=== PATIENT | female | born 1975 | race Caucasian/White ===

== ENCOUNTER → 2020-08-23 10:23 | Outpatient (CLI) | payer BC, OTHER, SELFPAY ==
--- NOTE | 2020-08-23 10:29 | MM_ITS ---
PROCEDURE: MM DIG SCREENING MAMM BI W/CAD Digital Breast Tomosynthesis Included CLINICAL INDICATION: SCREENING There is a history of breast cancer in the patient's aunt. COMPARISON: MG DMSB DIG MAMM-SCREEN AKASH from 03/12/2016 TECHNIQUE: Standard CC and MLO images and 3D Tomosynthesis was obtained. R2 CAD reviewed. FINDINGS: Mild to moderate scattered fibroglandular densities are seen in both breasts. There are couple of benign-appearing microcalcifications each breast. No suspicious lesion in either breast and no suspicious microcalcifications. There is a fatty replaced node right axilla. IMPRESSION: Fibrofatty parenchyma with no suspicious lesions seen BI-RAD Category: 2 Benign Finding(s) FOLLOW-UP: 1YR 1 Year Follow-up (A letter has been sent to the patient regarding results of the study.) Dictated by: Dr. Román Ferrell MD 08/26/2020 08:49 Dr. Román Ferrell MD in [place] 08/26/2020 08:49
== END ==
PROVIDERS: PCP Family Medicine; Visit Provider Nurse Practitioner Family
DX: Z12.31 Encounter for screening mammogram for malignant neoplasm of breast (principal)
CPT/HCPCS: 77063; 77067

== ENCOUNTER 2021-10-05 11:28 | Outpatient (CLI) | payer BC, SELFPAY ==
[2021-10-05 12:03] VITALS: BMI 41.9
[2021-10-05 12:03] LABS: Chloride 95 mmol/L (98-107); Sodium 132 mmol/L (136-145)
[2021-10-05 12:06] LABS: Blood Urea Nitrogen 17 mg/dl (7-17); Calcium 8.5 mg/dl (8.4-10.2); Carbon Dioxide 29 mmol/L (22.0-30.0); Creatinine Clearance Estimated 63 mL/min (50-200); Estimated Glomerular Filt Rate 59 ml/min (>60); GFR (African American) 72 ML/MIN (>60)
[2021-10-05 12:11] LABS: Glucose 443 mg/dl (74-100)
--- NOTE | 2021-10-05 12:12 | PC.NURSE ---
Mandi Rodas called Virginia Collins RN to report glucose level 443. RN repeated and verified pt, name, , and lab value. Result called to Salina Cardoza, order noted to proceed w/orders already written.
[2021-10-05 12:41] LABS: Basophils # 0.2 K/mm3 (0-0.2); Basophils % 2.8 % (0.1-2.0); Eosinophils # 0.1 K/mm3 (0.0-0.4); Eosinophils % 1.5 % (0.1-12.0); Hematocrit 44.1 % (37.0-47.0); Hemoglobin 14.2 g/dL (12.2-16.2); Lymphocytes # 1.9 K/mm3 (0.7-4.5); Lymphocytes % 24.8 % (10-50); Mean Corpuscular HGB Conc 32.2 g/dL (31.8-35.4); Mean Corpuscular Hemoglobin 26.5 pg (27.0-31.2); Mean Corpuscular Volume 82.2 fl (81-99); Mean Platelet Volume 9.8 fl (7.4-10.4); Monocytes # 0.4 K/mm3 (0.1-1.0); Monocytes % 4.9 % (1.7-9.3); Platelet Count 165 K/mm3 (142-424); Red Blood Count 5.36 M/mm3 (4.20-5.40); Red Cell Distribution Width 15.8 % (11.5-17.5); White Blood Count 7.6 K/mm3 (4.8-10.8)
[2021-10-05 12:45] VITALS: BP 102/64; PULSE 78; RESP 18; O2SAT 98
[2021-10-05 13:15] VITALS: BP 104/53; PULSE 70; RESP 16; O2SAT 98
[2021-10-05 13:45] VITALS: BP 92/56; PULSE 74; RESP 16; O2SAT 99
[2021-10-05 14:15] VITALS: BP 99/51; PULSE 72; RESP 18; TEMP 36.6; O2SAT 100
[2021-10-05 14:40] VITALS: BP 103/59; PULSE 82; RESP 18; TEMP 36.6; O2SAT 97
[2021-10-05 14:43] VITALS: BP 116/62; PULSE 71; RESP 16; TEMP 36.6; O2SAT 99
== END 2021-10-05 14:45 | disposition home or self-care (01) ==
LOC: LAB 11:29 → INF 12:09
PROVIDERS: PCP Family Medicine; Visit Provider Family Medicine
DX: E86.0 Dehydration (principal); R73.9 Hyperglycemia, unspecified
CPT/HCPCS: 36415; 80048; 85025; 96360; 96361

== ENCOUNTER → 2021-10-11 15:34 | Outpatient (CLI) | payer BC, SELFPAY ==
--- NOTE | 2021-10-11 15:41 | MM_ITS ---
PROCEDURE INFORMATION: Exam: MG Bilateral Screening 3D Mammography Exam date and time: 10/11/2021 3:39 PM Age: 46 years old Clinical indication: Screening examination TECHNIQUE: Imaging protocol: Bilateral Screening tomosynthesis and 2D mammography including computer-aided detection (CAD) when performed. COMPARISON: 1. MG MM DIG SCREENING MAMM BI W/CAD 08/23/2020 10:41 AM 2. MG DMSB DIG MAMM-SCREEN AKASH 03/12/2016 9:33 AM FINDINGS: MAMMOGRAPHY: Breast composition: There are scattered areas of fibroglandular density. Mass: None. Architectural distortion: None. Calcifications: No suspicious calcifications. Asymmetric density: None. Skin thickening: None. Axillary adenopathy: None. IMPRESSION: No mammographic evidence of malignancy. Annual screening is recommended unless otherwise clinically indicated. ASSESSMENT: BI-RADS Category 1: Negative
== END ==
PROVIDERS: PCP Family Medicine; Visit Provider Nurse Practitioner Family
DX: Z12.31 Encounter for screening mammogram for malignant neoplasm of breast (principal)
CPT/HCPCS: 77063; 77067

== ENCOUNTER → 2022-12-11 12:29 | Outpatient (CLI) | payer BC, SELFPAY ==
--- NOTE | 2022-12-11 12:35 | MM_ITS ---
PROCEDURE INFORMATION: Exam: MG Bilateral Screening 3D Mammography Exam date and time: 12/11/2022 12:53 PM Age: 47 years old Clinical indication: Screening examination; Family history of breast cancer in aunt TECHNIQUE: Imaging protocol: Bilateral Screening tomosynthesis and 2D mammography including computer-aided detection (CAD) when performed. COMPARISON: 1. MG MM DIG SCREENING MAMM BI W/CAD 10/11/2021 3:39 PM 2. MG MM DIG SCREENING MAMM BI W/CAD 08/23/2020 10:41 AM FINDINGS: MAMMOGRAPHY: Breast composition: There are scattered areas of fibroglandular density. Mass: None. Architectural distortion: None. Calcifications: No suspicious calcifications. Asymmetric density: None. Skin thickening: None. Axillary adenopathy: None. IMPRESSION: No mammographic evidence of malignancy. Annual screening is recommended unless otherwise clinically indicated. ASSESSMENT: BI-RADS Category 1: Negative
== END ==
PROVIDERS: PCP Family Medicine; Visit Provider Physician Assistant
DX: Z12.31 Encounter for screening mammogram for malignant neoplasm of breast (principal)
CPT/HCPCS: 77063; 77067

== ENCOUNTER 2023-10-23 08:01 | Day surgery (SDC) | payer BC, SELFPAY ==
[2023-10-21 13:32] VITALS: BMI 40.7
[2023-10-23] VITALS (7 sets, daily range): BP systolic 109–137; BP diastolic 69–88; PULSE 85–97; RESP 16–18; TEMP 36.1–36.8; O2SAT 98–100
[2023-10-23] MEDS: LACTATED RINGERS 1000ML 1,000 ML 25 ML IV (09:09)
[2023-10-23 09:13] LABS: Urine Pregnancy, HCG Qual. Negative (Negative)
[2023-10-23 09:17] LABS: POC Glucose,Bedside 100 (70-110)
--- NOTE | 2023-10-23 09:56 | HMH.SCOPE ---
Procedure: Date: 10/23/23 Patient Date of :: 1975 Procedure Performed:: Colonoscopy Indications:: The patient is a 48-year-old who presents for screening colonoscopy for colorectal cancer. This is the patient's first colonoscopy Performing Provider:: Dylan Page MD Referring Provider:: Rivas Waterman MD Sedation:: See RN records Procedure:: After placing the patient in the left lateral decubitus position, the colonoscopy was gently inserted into the rectum and under direct visualization advanced to the cecum which was identified by transillumination in the right lower quadrant, identification of the ileocecal valve, appendiceal orifice, and cecal strap. Color, texture, mucosa, and anatomy of the colon were carefully examined with the scope. Findings:: The quality of the bowel preparation was good. There was a small sessile polyp (4 to 6 mm) in the ascending colon. The polyp was removed by cold snare polypectomy. The polyp was retrieved. The remaining colon appeared normal. Internal hemorrhoids were seen on retroflexion view of the rectum. There is a family history of colon cancer in a paternal grandparent. The patient does not know her father's medical history in detail. Impression: Polyp of the ascending colon Recommendations:: Await pathology results Repeat colonoscopy in 5 years Complications:: None Estimated blood obtained (mL): 0 Colonoscopy Component Colonoscopy Component Was a colonoscopy performed during today's procedure?: Yes Recommended follow up colonoscopy of at least 10 years?: Yes
--- NOTE | 2023-10-23 09:57 | EXP.ANES.CKL ---
[facility] Disclaimer: The information contained in this section may have been updated after the patient was seen, as this information can be updated by other users. Medical History Hx of heart disorder History of Wwups-Qjeyifitd-Mkszi (WPW) syndrome History of gastroesophageal reflux (GERD) Hyperlipidemia Hypertension Diabetes mellitus, type 2 Surgical History Hx of tooth extraction History of section Family History Grandfather Colon cancer Other Family history of diabetes mellitus type II Family history of hypertension Family history of myocardial infarction Social History Smoking Status: Never smoker alcohol intake: never substance use type: denies use current occupational status: employed Travel in the last 8 weeks: None adopted: No caregiver/support person: No foster care: No household members: spouse housing: house lives independently: Yes marital status: education level: high school service: No assisted: No caffeine: No special mariana needs: No agree to transfusion: No do you feel safe at home: Yes victim of physical abuse: No victim of emotional abuse: No victim of sexual abuse: No would you like helpful sources: No [facility] Anesthesia Checklist Patient Identification Patient Identification: Verbal (Name & ) Structural Data Admitted From: Home Planned Operative Procedure/s: colonoscopy Consent for Planned Operative Procedure(s) Verified: Yes Airway Assessment Mallampati Score:: Class II C-Spine Mobility Assessed: Yes TMJ Mobility Assessed: Yes Dentition: Good Dentition Neurological Assessment Level of Consciousness: Awake, Alert and Appropriate Anesthesia Plan Anesthesia Risk discussed: Yes Anesthesia Plan: Verified ASA Class: II Anesthesia Type: MAC
== END 2023-10-23 10:50 | disposition home or self-care (01) ==
PROVIDERS: PCP Family Medicine; Visit Provider Internal Medicine
PROC: (CPT 45385; principal; 2023-10-23 09:00)
DX: Z12.11 Encounter for screening for malignant neoplasm of colon (principal); K64.8 Other hemorrhoids; Z80.0 Family history of malignant neoplasm of digestive organs; D12.2 Benign neoplasm of ascending colon; E11.9 Type 2 diabetes mellitus without complications
CPT/HCPCS: 45385; 81025; 82962

== ENCOUNTER 2023-12-03 16:17 | Outpatient (CLI) | payer BC, SELFPAY ==
--- NOTE | 2023-12-03 16:21 | MM_ITS ---
PROCEDURE INFORMATION: Exam: MG Bilateral Screening 3D Mammography Exam date and time: 12/03/2023 4:08 PM Age: 48 years old Clinical indication: Screening mammogram TECHNIQUE: Imaging protocol: Bilateral Screening tomosynthesis and 2D mammography including computer-aided detection (CAD) when performed. COMPARISON: 1. MG MM DIG SCREENING MAMM BI W/CAD 12/11/2022 12:53 PM 2. MG MM DIG SCREENING MAMM BI W/CAD 10/11/2021 3:39 PM 3. MG MM DIG SCREENING MAMM BI W/CAD 08/23/2020 10:41 AM 4. MG DMSB DIG MAMM-SCREEN AKASH 03/12/2016 9:33 AM FINDINGS: MAMMOGRAPHY: Breast composition: There are scattered areas of fibroglandular density. Mass: None. Architectural distortion: No new or suspicious architectural distortion. Calcifications: No new or suspicious calcifications are present Asymmetric density: No new or suspicious asymmetric density is present Skin thickening: None. Axillary adenopathy: None. IMPRESSION: No mammographic evidence of malignancy. Recommend annual screening mammography unless otherwise clinically indicated. ASSESSMENT: BI-RADS category 1: Negative.
== END 2023-12-03 23:59 | disposition home or self-care (01) ==
LOC: RAD 16:18
PROVIDERS: PCP Nurse Practitioner Family; Visit Provider Nurse Practitioner Family
DX: Z12.31 Encounter for screening mammogram for malignant neoplasm of breast (principal)
CPT/HCPCS: 77063; 77067

== ENCOUNTER 2024-12-07 07:53 | Outpatient (CLI) | payer BC, SELFPAY ==
--- OUTSIDE RECORDS SUMMARY | 2024-05-18 05:30 | XMS_ITS ---
Author Organization [facility] Address [address] [place] [id number] Care Team Providers Care Certified Optician Name Role Phone Saul Rose Primary Care Provider Zulma Hand Unavailable [phone] Allergies No Known Allergies Results Component Value Reference Range Notes Glycohemoglobin A1c (in hous e) Reviewed date:05/18/2024 01:24:35 PM Interpretation:7.3% Performing Lab: Notes/Report: 7.3% glycohemoglobin 7.3% 5 - 6.5 % P-Comprehensive Metabolic Pa jorge (CMP) Reviewed date:05/22/2024 09:29:09 AM Interpretation:BS 168 Performing Lab: Notes/Report: Test performed by [facility], [place] [address] [place] [address] , [address], [place] [address] Piyush Handy MD, Pet Training Instructor CLIA: [id number] Sodium 141 135-145 mmol/L Potassium 5.0 3.5-5.3 mmol/L Chloride 101 97-108 mmol/L CO2 30 22-32 mmol/L Glucose 168 65-99 mg/dL BUN 6 6-20 mg/dL Creatinine 0.80 0.50-1.00 mg/dL Calcium 9.0 8.6-10.4 mg/dL eGFR by Creatinine 90 >59 mL/min/1.73m2 Protein 6.5 6.0-8.3 g/dL Albumin 3.8 3.5-5.3 g/dL Alkaline Phosphatase 108 35-121 IU/L ALT (SGPT) 20 <5-47 IU/L AST (SGOT) 20 <5-40 IU/L Bilirubin, Total 0.5 <0.2-1.2 mg/dL A/G Ratio 1.4 1.1-2.5 P-Lipid Panel Reviewed date:05/22/2024 09:28:33 AM Interpretation:[id number] Performing Lab: Notes/Report: Test performed by [facility], [address] , [address], [place] [address] Piyush Handy MD, Pet Training Instructor CLIA: [id number] Cholesterol 143 <200 mg/dL Triglycerides 105 <150 mg/dL HDL Cholesterol 44 >39 mg/dL Cholesterol / HDL Ratio 3.25 0.00-4.44 Ratio Non-HDL Cholesterol 99 <130 mg/dL LDL Cholesterol (Calculation) 78 <130 mg/dL LDL Cholesterol Levels* Less than 100 mg/dL Optimal 100 to 129 mg/dL Near Optimal/ Above Optimal 130 to 159 mg/dL Borderline High 160 to 189 mg/dL High 190 mg/dL and above Very High * Categories as recommended by the 2004 ATPIII guidelines LDL/HDL Ratio 1.8 <3.3 Ratio LDL Cholesterol Patient History Test Date: 05/18/2024 LDL Results: 78 Units: mg/dL % Change: - P-Microalbumin/Creatinine, R andom Urine Sample Reviewed date:05/22/2024 09:29:46 AM Interpretation: Performing Lab: Notes/Report: Test performed by [facility], [address] , [address], [place] [address] Piyush Handy MD, Pet Training Instructor CLIA: [id number] Albumin/Creatinine Ratio, Urine 4 0-30 ug/m g Microalbumin, Urine, Random 0.6 Creatinine, Urine 143.7 REASON FOR VISIT 6 month check, Needs labs & flu vaccine Medications Medication SIG (Take, Route, Frequency, Duration) Notes Start Date End Date Status Lisinopril-hydroCHLOROthiazi de 10-12.5 MG 1 tab(s) orally once a day; Duration: 90 days Active Lipitor 10 MG 1 tab(s) orally once a day (at bedtime); Duration: 90 days Active Lisinopril 2.5 MG 1 tablet Orally Once a day; Duration: 90 day(s) 11/25/2023 Active ZANTAC 150 150 MG 1 tab(s) ORALLY QD; Duration: 90 days Active BD DANELLE 2ND GEN PEN NEEDLE 4 MM X 32G - DIRECTED Active Xigduo XR 5-1000 MG 2 tab Orally Once a day; Duration: 90 day(s) 07/18/2023 Active Rybelsus 14 MG 1 tablet at least 30 minutes before first food, beverage or other oral medicine of the day Orally Once a day; Duration: 90 day(s) Active GLUCOMETER DIRECTED TWO TIME S A DAY 10/05/2021 Active Lancets 1 TWO TIMES A DAY 10/05/2021 A ctive GLUCOMETER TEST STRIPS DIRECTED TWO T IMES A DAY 10/05/2021 Active CONTOUR METER SYSTEM DIRECTED 01/18/2012 Active Contour Test DIRECTED TEST 1 X PER DAY 01/18/2012 Active B-12 1000 MCG 1 tab(s) orally once a day 02/23/2016 Active CHROMIUM PUCOLINATE 500 MCG 1 TAB ORAL ONCE DAILY Active Jobst 30-40mmHg Compression Sm DIRECTED 019 Active Potassium Chloride ER 10 MEQ 1 cap(s) or ally 2 times a day; Duration: 90 days Active hydroCHLOROthiazide 12.5 MG 1 capsule in the morning Orally Once a day; Duration: 90 day(s) 11/25/2023 Active Immunizations Vaccine Route Administration Date Status Comme nts Crystal Aguilera (6months&older) IM Intramuscular 05/18/2024 Administered Vital Signs Blood pressure systolic 120 mm Hg 05/18/20 24 Blood pressure diastolic 80 mm Hg 024 Heart Rate 61 /min 05/18/2024 Height 64.50 in 05/18/2024 Weight 222.2 lbs 05/18/2024 BMI 37.55 kg/m2 05/18/2024 Encounters Encounter Location Date Provider Diagnosis [facility] [address] [place], [place] [id number] 05/18/2024 Zulma Hand Type 2 diabetes chrissy itus without complication E11.9 ; Mixed hyperlipidemia E78.2 ; Essential hypertension, hypertension with unspecified goal I10 ; Gastroesophageal reflux disease without esophagitis K21.9 and Encounter for immunization Z23 Assessments Encounter Date Diagnosis (ICD Code) Assessment Notes Treatment Notes Treatment Clinical Notes Section Notes 05/18/2024 Type 2 diabetes mellitus without complication (ICD-10 - E11.9) 05/18/2024 Mixed hyperlipidemia (ICD-10 - E78.2) 05/18/2024 Essential hypertension, hypertension with unspecified goal (ICD-10 - I10) some low BP; denia decrease lisinopril and continue with HCTZ due to varicosities of the right leg 05/18/2024 Gastroesophageal reflux disease without esophagitis (ICD-10 - K21.9) 05/18/2024 Encounter for immunization (ICD-10 - Z23) 05/18/2024 Other discussed need for Eye exam annually Plan Of Treatment Medication Medication Name Sig Start Date Stop Date Notes Lipitor 10 MG 1 tab(s) orally once a day (at bedtime); Duration: 90 days Lisinopril 2.5 MG 1 tablet Orally Once a day; Duration: 90 day(s) 11/25/2023 ZANTAC 150 150 MG 1 tab(s) ORALLY QD; Duration: 90 days Xigduo XR 5-1000 MG 2 tab Orally Once a day; Duration: 90 day(s) 07/18/2023 Rybelsus 14 MG 1 tablet at least 30 minutes before first food, beverage or other oral medicine of the day Orally Once a day; Duration: 90 day(s) Treatment Notes Assessment Notes Essential hypertension, hype rtension with unspecified goal some low BP; denia decrease lisinopril an d continue with HCTZ due to varicosities of the right leg Other discussed need for E ye exam annually Next Appt Details Follow Up: 6 Months,and prn, Reason: Provider Name:Saul Trejo ry, 05/11/2025 09:45:00 AM, [address], [address], [place], [place], [phone], Progress Notes * Omid DOUGLASaDOB:1975 (49 yo F)Acc No.[id number]:05/18/2024 Progress Notes Patient: Sienna LEDBETTER Provider: PAULO Ledesma :1975 A ge:49 Y S ex:Female Date:05/18/2024 Address:[address] [place] [address] [facility] [id number] Pcp:Saul Rose Subjective: * Chief Complaints: * 1 . 6 month check. 2. Needs labs & flu vaccine. * HPI: H PI: 49 year old female presents with c/o Patient is here today for?Pt is here today for a 6 month check up and sts she is fatsing. Pt sts she is doing well and has no concerns or complaints at this time. she did run out of some of meds mid Apr and was short on money for RF; she brings in a log of BS and BP; see copies. * ROS: C ARDIOLOGY: Dizziness y es, a t times at work. n o C hest pain. n o P alpitations. n o L eg edema. D ERMATOLOGY: no R sage. n o H will. G ASTROENTEROLOGY: Positive for e ating less with weight loss. n o N ausea. n o V omiting. n o D iarrhea. n o C onstipation. U ROLOGY: no D ifficulty urinating. n o B lood in urine. * Medical History: D iabetes mellitus, Hyperlipidemia, Hypertension, GERD, WPW Syndrome. * Surgical History: C SECTION , Tooth Extraction Feb 2019, Colonoscopy October 2023. * Hospitalization/Major Diagno stic Procedure: H MH-uncontrolled diabetes mellitus 01/04/12 to 01/07/12. * Family History: F ather: alive, diabetes. M other: alive, diabetes, hypertension. P aternal Grand Father: hypertension, diabetes. P aternal Grand Mother: diabetes. M aternal Grand Father: diabetes. M aternal Grand Mother: hypertension, diabetes. * Social History: C URRENT TOBACCO USE S moking Status: Patient does NOT smoke. C affeine: soft drinks. Alcohol: No. * Medications: T aking Potassium Chloride ER 10 MEQ Capsule Extended Release 1 cap(s) orally 2 times a day , Taking Lipitor 10 MG Tablet 1 tab(s) orally once a day (at bedtime) , Taking hydroCHLOROthiazide 12.5 MG Capsule 1 capsule in the morning Orally Once a day , Taking Lisinopril 5 MG Tablet 1 tablet Orally Once a day , Taking Xigduo XR 5- 1000 MG Tablet Extended Release 24 Hour 2 tab Orally Once a day , Taking Rybelsus 14 MG Tablet 1 tablet at least 30 minutes before first food, beverage or other oral medicine of the day Orally Once a day , Taking CONTOUR METER SYSTEM DIRECTED , Taking Contour Test DIRECTED TEST 1 X PER DAY , Taking CHROMIUM PUCOLINATE 500 MCG 1 TAB ORAL ONCE DAILY , Taking Jobst 30-40mmHg Compression Sm KNEE HIGH DIRECTED , Taking B-12 1000 MCG Tablet 1 tab(s) orally once a day , Taking GLUCOMETER DIRECTED TWO TIMES A DAY , Taking Lancets 1 TWO TIMES A DAY , Taking GLUCOMETER TEST STRIPS DIRECTED TWO TIMES A DAY , Taking BD DANELLE 2ND GEN PEN NEEDLE 4MM X 32G - DIRECTED , Taking ZANTAC 150 150 MG TABLET 1 tab(s) ORALLY QD , Taking Lisinopril-hydroCHLOROthiazide 10-12.5 MG Tablet 1 tab(s) orally once a day , Medication List reviewed and reconciled with the patient * Allergies: N .K.D.A. Objective: * Vitals: W t:222.2, Temp:98.5, BP:120/80, HR:61, Nurse:ZOE, Ht: 64.50, BMI:37.55. * Examination: G eneral Examination: General Appearance: NAD, appears healthy, alert, pleasant. H EENT: sclera and conjunctiva clear, PERRLA, TM's normal, translucent. O ral cavity: mucosa moist and WNL, no erythema. N angelic: supple, no lymphadenopathy, no carotid bruits, thyroid normal. H eart: RRR. L ungs: CTAB A&P. N eurologic Exam:? alert and oriented. E xtremities: no leg edema, large varicose veins in the right leg. Assessment: * Assessment: 1. T ype 2 diabetes mellitus without complication - E11.9 (Primary) 2 . M ixed hyperlipidemia - E78.2 3 . E ssential hypertension, hypertension with unspecified goal - I10 4 . G astroesophageal reflux disease without esophagitis - K21.9 5 . E ncounter for immunization - Z23 Plan: * Treatment: 2. M ixed hyperlipidemia Refill Lipitor Tablet, 10 MG, 1 tab(s), orally, once a day (at bedtime), 90 days, 90, Refills 1.? L AB: P-Lipid Panel (Collection Date & Time - 05/18/2024 09:03 AM) L DL78 Value Reference Range C holesterol / HDL Ratio 3.25 0.00-4.44 - Ratio * C holesterol 143 <200 - mg/dL * H DL Cholesterol 44 >39 - mg/dL * L DL Cholesterol (Calculation) 78 <130 - mg/d L * L DL/HDL Ratio 1.8 <3.3 - Ratio * N on-HDL Cholesterol 99 <130 - mg/dL * T riglycerides 105 <150 - mg/dL * Zulma Hand 05/22/2024 9:28:04 AM > I spoke with pt and reported results 3.?Essential hypertension, hypertension with unspecified goal? Decrease Lisinopril Tablet, 2.5 MG, 1 tablet, Orally, Once a day, 90 day(s), 90 Tablet, Refills 1. ? Notes: some low BP; denia decrease lisinopril and continue with HCTZ due to varicosities of the right leg??4.?Gastroesophageal reflux disease without esophagitis? Refill ZANTAC 150 TABLET, 150 MG, 1 tab(s), ORALLY, QD, 90 days, 90 Tablet, Refills 1.??5.?Others? Notes: discussed need for Eye exam annually?? * Immunizations: Fluzone Quad (6months&older) : 0.5 mL (Route: Intramuscular) given by ZOE Landis on Right Deltoid (Encounter for immunization) * Labs: * L ab: P-Microalbumin/Creatinine, Random Urine Sample (Collection Date & Time - 05/18/2024 09:03 AM) Value Reference Range A lbumin/Creatinine Ratio, Urine 4 0-30 - ug /mg * C reatinine, Urine 143.7 - mg/dL * M icroalbumin, Urine, Random 0.6 - mg/dL * Zulma Hand 05/22/2024 9:29:47 AM > ?Lab: P-Comprehensive Metabolic Panel (CMP) (Collection Date & Time - 05/18/2024 09:03 AM)?BS 168* Value Reference Range A /G Ratio 1.4 1.1-2.5 - * A lbumin 3.8 3.5-5.3 - g/dL * A lkaline Phosphatase 108 35-121 - IU/L * A LT (SGPT) 20 <5-47 - IU/L * A ST (SGOT) 20 <5-40 - IU/L * B ilirubin, Total 0.5 <0.2-1.2 - mg/dL * B UN 6 6-20 - mg/dL * C alcium 9.0 8.6-10.4 - mg/dL * C hloride 101 97-108 - mmol/L * C O2 30 22-32 - mmol/L * C reatinine 0.80 0.50-1.00 - mg/dL * G lucose 168 H 65-99 - mg/dL * P otassium 5.0 3.5-5.3 - mmol/L * S odium 141 135-145 - mmol/L * P rotein 6.5 6.0-8.3 - g/dL * e GFR by Creatinine 90 >59 - mL/min/1.73m2 * Zulma Hand 05/22/2024 9:25:17 AM > I spoke with pt and reported results ?Lab: Glycohemoglobin A1c (in house) (Collection Date & Time - 05/18/2024) ?7.3%* Value Reference Range g lycohemoglobin 7.3% 5 - 6.5 % * Soledad Barraza 05/18/2024 10:2 4:42 AM >Lacey Handharine 05/18/2024 1:24:21 PM > * Procedure Codes: 8 3036 GLYCATED HEMOGLOBIN TEST, Modifiers: QW * Follow Up: 6 Months,and prn * Images: Billing Information: * Visit Code: 68433 Office Visit, Est Pt., Level 4. * Procedure Codes: 64718 GLYCATED HEMOGLOBIN TEST. Modifiers: QW * Electronic signature of Carol aliyahchanda Hand APRN on 12/07/2024 at 07:55 AM EDT Sign off status: Pending * Provider: PAULO Ledesma Date: 1 07/19/2023 Generated for Simeon glaser/Zoey/Cecily on: 0 12/07/2024 07:55 AM EDT History and Physical Notes * HPI (History of Present Illness) Category Sub-Category Detail Notes Category Not es HPI Patient is here toda y for Pt is here today for a 6 month check up and sts she is fatsing. Pt sts she is doing well and has no concerns or complaints at this time she did run out of some of meds mid Apr and was short on money for RF; she brings in a log of BS and BP; see copies Examination Category Sub-Category Detail Notes Category Not es General Examination HEENT: sclera and c onjunctiva clear, PERRLA, TM's normal, translucent Heart: RRR Lungs: CTAB A&P Extremities: no leg edema, large varicose veins in the right leg General Appearance: NAD, appears healthy , alert, pleasant Neurologic Exam: alert and oriented Neck: supple, no lymphaden opathy, no carotid bruits, thyroid normal Oral cavity: mucosa moist and WNL , no erythema
--- OUTSIDE RECORDS SUMMARY | 2024-11-09 06:15 | XMS_ITS ---
Author Organization [facility] Address [address] [place] [id number] Care Team Providers Care Vp Securities Name Role Phone Saul Rose Primary Care Provider Zulma Hand Unavailable [phone] Allergies No Known Allergies Results Component Value Reference Range Notes CBC Venipuncture (in house) Reviewed date:11/13/2024 09:07:30 AM Interpretation: Performing Lab: Notes/Report: wbc 10.2 3.5 - 10 lymph 34.5 15 - 50 mid 6.7 2 - 15 gran 58.8 35 - 80 rbc 5.35. 3.5 - 5.5 hgb 14.0 11.5 - 16.5 hct 43.9 35 - 55 mcv 81.9 75 - 100 mch 26.1 25 - 35 mchc 31.9 31 - 38 platlet 271 100 - 400 Glycohemoglobin A1c (in hous e) Reviewed date:11/13/2024 09:04:32 AM Interpretation:6.3% Performing Lab: Notes/Report: 6.3% glycohemoglobin 6.3% 5 - 6.5 % P-Comprehensive Metabolic Pa jorge (CMP) Reviewed date:11/13/2024 09:07:02 AM Interpretation:BS 101 Performing Lab: Notes/Report: Test performed by [facility] , [address], [place] [address] Piyush Handy MD, Cashier General CLIA: [id number] Sodium 139 135-145 mmol/L Potassium 4.9 3.5-5.3 mmol/L Chloride 101 97-108 mmol/L CO2 30 22-32 mmol/L Glucose 101 65-99 mg/dL BUN 11 6-20 mg/dL Creatinine 0.78 0.50-1.00 mg/dL Calcium 8.9 8.6-10.4 mg/dL eGFR by Creatinine 92 >59 mL/min/1.73m2 Protein 6.6 6.0-8.3 g/dL Albumin 4.1 3.5-5.3 g/dL Alkaline Phosphatase 87 35-121 IU/L ALT (SGPT) 13 <5-47 IU/L AST (SGOT) 15 <5-40 IU/L Bilirubin, Total 0.5 <0.2-1.2 mg/dL A/G Ratio 1.6 1.1-2.5 P-Lipid Panel Reviewed date:11/13/2024 09:08:17 AM Interpretation:HDL 43;LDL 69; TG 103 Performing Lab: Notes/Report: Test performed by [facility] [place] [employer] [facility] , [address], [place] [address] Piyush Handy MD, Cashier General CLIA: [id number] Cholesterol 133 <200 mg/dL Triglycerides 103 <150 mg/dL HDL Cholesterol 43 >39 mg/dL Cholesterol / HDL Ratio 3.09 0.00-4.44 Ratio Non-HDL Cholesterol 90 <130 mg/dL LDL Cholesterol (Calculation) 69 <130 mg/dL LDL Cholesterol Levels* Less than 100 mg/dL Optimal 100 to 129 mg/dL Near Optimal/ Above Optimal 130 to 159 mg/dL Borderline High 160 to 189 mg/dL High 190 mg/dL and above Very High * Categories as recommended by the 2004 ATPIII guidelines LDL/HDL Ratio 1.6 <3.3 Ratio LDL Cholesterol Patient History Test Date: 11/09/2024 LDL Results: 69 Units: mg/dL % Change: - REASON FOR VISIT 6 month checkup, Needs labs, diabetic eye exam, shingles vaccine, & mammogram due in December Medications Medication SIG (Take, Route, Frequency, Duration) Notes Start Date End Date Status hydroCHLOROthiazide 12.5 MG 1 capsule in the morning Orally Once a day; Duration: 90 days 11/25/2023 Active Potassium Chloride ER 10 MEQ 1 cap(s) or ally 2 times a day; Duration: 90 days Active Lisinopril 2.5 MG 1 tablet Orally Once a day; Duration: 90 day(s) 11/25/2023 Active Lisinopril-hydroCHLOROthiazi de 10-12.5 MG 1 tab(s) orally once a day; Duration: 90 days Active BD DANELLE 2ND GEN PEN NEEDLE 4 MM X 32G - DIRECTED Active GLUCOMETER DIRECTED TWO TIME S A DAY 10/05/2021 Active Lipitor 10 MG 1 tab(s) orally once a day (at bedtime); Duration: 90 days Active ZANTAC 150 150 MG 1 tab(s) ORALLY daily; Duration: 90 days Active GLUCOMETER TEST STRIPS DIRECTED TWO T IMES A DAY 10/05/2021 Active Lancets 1 TWO TIMES A DAY 10/05/2021 A ctive B-12 1000 MCG 1 tab(s) orally once a day 02/23/2016 Active Xigduo XR 5-1000 MG 2 tab Orally Once a day; Duration: 90 day(s) 07/18/2023 Active Jobst 30-40mmHg Compression Sm DIRECTED 019 Active CHROMIUM PUCOLINATE 500 MCG 1 TAB ORAL ONCE DAILY Active Rybelsus 14 MG 1 tablet at least 30 minutes before first food, beverage or other oral medicine of the day Orally Once a day; Duration: 90 days Active Contour Test DIRECTED TEST 1 X PER DAY 01/18/2012 Active CONTOUR METER SYSTEM DIRECTED 01/18/2012 Active Vital Signs Blood pressure systolic 120 mm Hg 11/10/19 25 Blood pressure diastolic 70 mm Hg 025 Heart Rate 73 /min 11/09/2024 Height 64.50 in 11/09/2024 Weight 223.8 lbs 11/09/2024 BMI 37.82 kg/m2 11/09/2024 Encounters Encounter Location Date Provider Diagnosis [facility] [address] [facility] [address] [place] [id number] 11/09/2024 Zulma Hand Type 2 diabetes chrissy itus without complication E11.9 ; Essential hypertension, hypertension with unspecified goal I10 ; Mixed hyperlipidemia E78.2 ; Gastroesophageal reflux disease without esophagitis K21.9 and Hypokalemia E87.6 Assessments Encounter Date Diagnosis (ICD Code) Assessment Notes Treatment Notes Treatment Clinical Notes Section Notes 11/09/2024 Type 2 diabetes mellitus without complication (ICD-10 - E11.9) Since been off meds for a few months, A1C may be higher. Continue meds. If run out due to money issues may call up here to see if we have any samples. Follow up in 6 mo or as needed 11/09/2024 Essential hypertension, hypertension with unspecified goal (ICD-10 - I10) Monitor blood pressure at home, continue meds, exercise, and diet 11/09/2024 Mixed hyperlipidemia (ICD-10 - E78.2) Continue lipitor, recheck lipid panel, if run out of meds again and unable to afford call the office to see if we have any samples. 11/09/2024 Gastroesophageal reflux disease without esophagitis (ICD-10 - K21.9) Continue this med OTC as it has been helping you. 11/09/2024 Hypokalemia (ICD-10 - E87.6) continue with potassium pills, will recheck labs today Plan Of Treatment Medication Medication Name Sig Start Date Stop Date Notes hydroCHLOROthiazide 12.5 MG 1 capsule in the morning Orally Once a day; Duration: 90 days 11/25/2023 Potassium Chloride ER 10 MEQ 1 cap(s) or ally 2 times a day; Duration: 90 days Lisinopril 2.5 MG 1 tablet Orally Once a day; Duration: 90 day(s) 11/25/2023 Lipitor 10 MG 1 tab(s) orally once a day (at bedtime); Duration: 90 days ZANTAC 150 150 MG 1 tab(s) ORALLY reena y; Duration: 90 days Xigduo XR 5-1000 MG 2 tab Orally Once a day; Duration: 90 day(s) 07/18/2023 Rybelsus 14 MG 1 tablet at least 30 minutes before first food, beverage or other oral medicine of the day Orally Once a day; Duration: 90 days Treatment Notes Assessment Notes Type 2 diabetes mellitus without complic ation Since been off meds for a few months, A1C may be higher. Continue meds. If run out due to money issues may call up here to see if we have any samples. Follow up in 6 mo or as needed Essential hypertension, hype rtension with unspecified goal Monitor blood pressure at home, continue meds, exercise, and diet Mixed hyperlipidemia Continue lipitor, r echeck lipid panel, if run out of meds again and unable to afford call the office to see if we have any samples. Gastroesophageal reflux dise ase without esophagitis Continue this med OTC as it has been helping you. Hypokalemia continue with potass ium pills, will recheck labs today Next Appt Details Provider Name:Saul Trejo ry, 05/11/2025 09:45:00 AM, [address], [address] [place], [id number], Progress Notes * AARON OmidaDOB:1975 (49 yo F)Acc No.[id number]:11/09/2024 Progress Notes Patient: Sienna LEDBETTER Provider: PAULO Ledesma :1975 A ge:49 Y S ex:Female Date:11/09/2024 Address:[address] [place], [place] [address] [id number] Pcp:Saul Rose Subjective: * Chief Complaints: * 1 . 6 month checkup. 2. Needs labs, diabetic eye exam, shingles vaccine, & mammogram due in December. * HPI: H PI: Wears compression socks to work and helps with varicose veins; ran out of meds for severa weeks due to lack of funds. 49 year old female presents with c/o Patient is here today for?Pt is here today for a 6 month check up. Pt sts she is fasting and is doing well and has no concerns at this time. * ROS: C ARDIOLOGY: no C hest pain. n o L eg edema. n o S hortness of breath. V aricose veins yes. D ERMATOLOGY: no R sage. n o H will. G ASTROENTEROLOGY: Positive for e ating less with weight loss. n o N ausea. n o V omiting. n o D iarrhea. n o C onstipation. U ROLOGY: no D ifficulty urinating. n o B lood in urine. W ill get her mammogram in December, due for diabetic eye exam. Let her know it is under a different code at eye dr and will be counted towards medical. * Medical History: D iabetes mellitus, Hyperlipidemia, [...] drinks. Alcohol: No. * Medications: T aking CONTOUR METER SYSTEM DIRECTED , Taking Contour [...] 4MM X 32G - DIRECTED , Taking Lisinopril-hydroCHLOROthiazide 10-12.5 MG Tablet 1 tab(s) orally once a day , Taking Xigduo XR 5-1000 MG Tablet Extended Release 24 Hour 2 tab Orally Once a day , Taking Rybelsus 14 MG Tablet 1 tablet at least 30 minutes before first food, beverage or other oral medicine of the day Orally Once a day , Taking ZANTAC 150 150 MG TABLET 1 tab(s) ORALLY QD , Taking Lipitor 10 MG Tablet 1 tab(s) orally once a day (at bedtime) , Taking Lisinopril 2.5 MG Tablet 1 tablet Orally Once a day , Taking Potassium Chloride ER 10 MEQ Capsule Extended Release 1 cap(s) orally 2 times a day , Taking hydroCHLOROthiazide 12.5 MG Capsule 1 capsule in the morning Orally Once a day , Medication List reviewed and reconciled with the patient * Allergies: N .K.D.A. Objective: * Vitals: W t: 223.8, Temp: 98.5, BP: 120/70, HR: 73, Nurse: mm, Ht: 64.50, BMI:37.82. * Examination: G eneral Examination: General Appearance: N AD, alert, appears healthy. H EENT: n ormal. O ral cavity: n o erythema, no lesions, poor dentition. N angelic: n o lymphadenopathy. H eart: R RR. L ungs: n ormal, clear to auscultation. A bdomen: bowel sounds present, normal. S kin: n ormal, no rash. P eripheral pulses: n ormal (2+) bilaterally. Assessment: * Assessment: 1. T ype 2 diabetes mellitus without complication - E11.9 (Primary) 2 . E ssential hypertension, hypertension with unspecified goal - I10 3 . M ixed hyperlipidemia - E78.2 4 . G astroesophageal reflux disease without esophagitis - K21.9 5 . H ypokalemia - E87.6 Plan: * Treatment: Value Reference Range A /G Ratio 1.6 1.1-2.5 - * A lbumin 4.1 3.5-5.3 - g/dL * A lkaline Phosphatase 87 35-121 - IU/L * A LT (SGPT) 13 <5-47 - IU/L * A ST (SGOT) 15 <5-40 - IU/L * B ilirubin, Total 0.5 <0.2-1.2 - mg/dL * B UN 11 6-20 - mg/dL * C alcium 8.9 8.6-10.4 - mg/dL * C hloride 101 97-108 - mmol/L * C O2 30 22-32 - mmol/L * C reatinine 0.78 0.50-1.00 - mg/dL * G lucose 101 H 65-99 - mg/dL * P otassium 4.9 3.5-5.3 - mmol/L * S odium 139 135-145 - mmol/L * P rotein 6.6 6.0-8.3 - g/dL * e GFR by Creatinine 92 >59 - mL/min/1.73m2 * Zulma Hand 11/13/2024 09:00:45 AM EDT >I spoke with pt and reported results; will decrease KCL to once daily ?LAB: Glycohemoglobin A1c (in house) (Collection Date & Time - 11/09/2024)? 6.3%* Value Reference Range g lycohemoglobin 6.3% 5 - 6.5 % * Soledad Barraza 11/09/2024 11:34 :25 AM EDT >Zulma Hand 11/13/2024 09:02:22 AM EDT >I spoke with pt and reported results Notes: Since been off meds for a few months, A1C may be higher. Continue meds. If run out due to money issues may call up here to see if we have any samples. Follow up in 6 mo or as needed??2.?Essential hypertension, hypertension with unspecified goal? Refill Lisinopril Tablet, 2.5 MG, 1 tablet, Orally, Once a day, 90 day(s), 90 Tablet, Refills 1; Refill hydroCHLOROthiazide Capsule, 12.5 MG, 1 capsule in the morning, Orally, Once a day, 90 days, 90, Refills 1.?? Notes: Monitor blood pressure at home, continue meds, exercise, and diet?? 3.?Mixed hyperlipidemia? Refill Lipitor Tablet, 10 MG, 1 tab(s), orally, once a day (at bedtime), 90 days, 90, Refills 1. ?LAB: P-Lipid Panel (Collection Date & Time - 11/09/2024 09:58 AM)?HDL 43;LDL 69; TG 103* Value Reference Range C holesterol / HDL Ratio 3.09 0.00-4.44 - Ratio * C holesterol 133 <200 - mg/dL * H DL Cholesterol 43 >39 - mg/dL * L DL Cholesterol (Calculation) 69 <130 - mg/d L * L DL/HDL Ratio 1.6 <3.3 - Ratio * N on-HDL Cholesterol 90 <130 - mg/dL * T riglycerides 103 <150 - mg/dL * Zulma Hand 11/13/2024 09:03:16 AM EDT >I spoke with pt and reported results; to continue with meds and diet regime Notes: Continue lipitor, recheck lipid panel, if run out of meds again and unable to afford call the office to see if we have any samples.?? 4.?Gastroesophageal reflux disease without esophagitis? Refill ZANTAC 150 TABLET, 150 MG, 1 tab(s), ORALLY, daily, 90 days, 90 Tablet, Refills 1.?LAB: CBC Venipuncture (in house) (Collection Date & Time - 11/09/2024)* Value Reference Range w bc 10.2 3.5 - 10 * l ymph 34.5 15 - 50 * m id 6.7 2 - 15 * g ran 58.8 35 - 80 * r bc 5.35. 3.5 - 5.5 * h gb 14.0 11.5 - 16.5 * h ct 43.9 35 - 55 * m cv 81.9 75 - 100 * m ch 26.1 25 - 35 * m chc 31.9 31 - 38 * p latlet 271 100 - 400 * Soledad Barraza 11/09/2024 11:35 :19 AM EDT >Zulma Hand 11/13/2024 09:02:40 AM EDT >I spoke with pt and reported results Notes: Continue this med OTC as it has been helping you.??5.?Hypokalemia? Refill Potassium Chloride ER Capsule Extended Release, 10 MEQ, 1 cap(s), orally, 2 times a day, 90 days, 180, Refills 1.?? Notes: continue with potassium pills, will recheck labs today ?? * Procedure Codes: 8 3036 GLYCATED HEMOGLOBIN TEST, Modifiers: QW , 59433 CBC WITH AUTO DIFF, 1036F TOBACCO NON-USER, 3044F HG A1C LEVEL LT 7.0%, G8783 BP SCR PRFRM RCMDD DEFIND SCR INTVL, G8752 MOST RECENT SYSTOLIC BP < 140MM HG, G8754 MOST RECENT DIASTOLIC BP < 90MM HG * Images: Billing Information: * Visit Code: 61816 Office Visit, Est Pt., Level 4. * Procedure Codes: 48949 GLYCATED HEMOGLOBIN TEST. Modifiers: QW 49834 CBC WITH AUTO DIFF. 1036F TOBACCO NON-USER. 3044F HG A1C LEVEL LT 7.0%. G8783 BP SCR PRFRM RCMDD DEFIND SCR INTVL. G8752 MOST RECENT SYSTOLIC BP < 140MM HG. G8754 MOST RECENT DIASTOLIC BP < 90MM HG. * Electronic signature of Carol Hand APRN on 12/07/2024 at 07:55 AM EDT Sign off status: Pending * Provider: PAULO Ledesma Date: 0 11/09/2024 Generated for Simeon glaser/Zoey/Luis Enriqueitting on: 0 12/07/2024 07:55 AM EDT History and Physical Notes * HPI (History of Present Illness) Category Sub-Category Detail Notes Category Not es HPI Patient is here today for Pt is here today for a 6 month check up. Pt sts she is fasting and is doing well and has no concerns at this time Examination Category Sub-Category Detail Notes Category Not es General Examination HEENT: normal Heart: RRR Lungs: normal, clear to aus cultation Abdomen: bowel sounds present , normal General Appearance: NAD, alert, appears healthy Skin: normal, no rash Neck: no lymphadenopathy Oral cavity: no erythema, no lesi ons, poor dentition Peripheral pulses: normal (2+) bilatera lly
--- OUTSIDE RECORDS SUMMARY | 2024-11-17 04:16 | XMS_ITS ---
[facility] Organization [facility] Address [address] [facility] [address] [facility] [address] [place] [phone] Care Team Providers Care Director Credit Risk Name Role Phone Saul Rose Primary Care Provider [phone] REASON FOR VISIT due mammogram Encounters Encounter Location Date Provider Diagnosis [facility] [address] [facility] [address] [place] [id number] 11/17/2024 Saul Rose Screening for breast cancer Z12.39 Assessments Encounter Date Diagnosis (ICD Code) Assessment Notes Treatment Notes Treatment Clinical Notes Section Notes 11/17/2024 Screening for breast cancer (ICD-10 - Z12.39) Plan Of Treatment Pending Test Test Name Order Date Mammogram 11/17/2024 Next Appt Details Provider Name:Saul Trejo ry, 05/11/2025 09:45:00 AM, [address] [facility], [address], [place], [phone], Progress Notes * Nisa DOUGLASB:1975 (49 yo F)Acc No.[id number]:11/17/2024 Patient: Omid LEDBETTERa :1975 A ge:49 Y S ex:Female Address:[place] [address] Subjective: * Chief Complaints: * D ue mammogram * Medical History: * Surgical History: * Hospitalization/Major Diagno stic Procedure: * Medications: Objective: * Vitals: * Physical Examination: Assessment: * Assessment: 1. S creening for breast cancer - Z12.39 (Primary) Plan: * Treatment: * Procedure Codes: * true * Date: Generated for Simeon glaser/Zoey/Cecily on: 12/07/2024 07:55 AM EDT
--- NOTE | 2024-12-07 07:55 | MM_ITS ---
PROCEDURE INFORMATION: Exam: MG Bilateral Screening 3D Mammography Exam date and time: 12/07/2024 8:10 AM Age: 49 years old Clinical indication: Screening examination TECHNIQUE: Imaging protocol: Bilateral Screening tomosynthesis and 2D mammography including computer-aided detection (CAD) when performed. COMPARISON: 1. MG MM DIG SCREENING MAMM BI W/CAD 12/03/2023 4:08 PM 2. MG MM DIG SCREENING MAMM BI W/CAD 12/11/2022 12:53 PM FINDINGS: MAMMOGRAPHY: Breast composition: There are scattered areas of fibroglandular density. Mass: None. Architectural distortion: None. Calcifications: No suspicious calcifications. Asymmetric density: None. Skin thickening: None. Axillary adenopathy: None. IMPRESSION: No mammographic evidence of malignancy. Annual screening is recommended unless otherwise clinically indicated. ASSESSMENT: BI-RADS Category 1: Negative.
--- OUTSIDE RECORDS SUMMARY | 2024-12-07 07:55 | XMS_ITS | Patient Health Record ---
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 Name Role Phone Saul Rose Primary Care Provider Marie Handine Unavailable [phone] Allergies No Known Allergies Results Component Value Reference Range Notes P-Lipid Panel Reviewed date:11/13/2024 09:08:17 AM Interpretation:HDL 43;LDL 69; TG 103 Performing Lab: Notes/Report: Test performed by [facility] [address] [place] [address] , [address], [place] [address] Piyush Handy MD, Endodontic Assistant CLIA: [id number] Cholesterol 133 <200 mg/dL Triglycerides 103 <150 [...] Results: 69 Units: mg/dL % Change: - P-Comprehensive Metabolic Pa jorge (CMP) Reviewed date:11/13/2024 09:07:02 AM Interpretation:BS 101 Performing Lab: Notes/Report: Test performed by [employer] [facility] [employer] [place] [id number] [facility] , [address], [place] [address] Piyush Handy MD, Endodontic Assistant CLIA: [id number] Sodium 139 135-145 mmol/L Potassium 4.9 3.5-5.3 [...] 0.5 <0.2-1.2 mg/dL A/G Ratio 1.6 1.1-2.5 Glycohemoglobin A1c (in hous e) Reviewed date:11/13/2024 09:04:32 AM Interpretation:6.3% Performing Lab: Notes/Report: 6.3% glycohemoglobin 6.3% 5 - 6.5 % CBC Venipuncture (in house) Reviewed date:11/13/2024 09:07:30 [...] - 38 platlet 271 100 - 400 P-Lipid Panel Reviewed date:05/22/2024 09:28:33 AM Interpretation:LDL78 Performing Lab: Notes/Report: Test performed by [employer] [employer] [facility] , [address], [place] [address] Piyush Handy MD, Endodontic Assistant CLIA: [id number] Cholesterol 143 <200 mg/dL Triglycerides 105 <150 [...] Results: 78 Units: mg/dL % Change: - Glycohemoglobin A1c (in hous e) Reviewed date:05/18/2024 01:24:35 PM Interpretation:7.3% Performing Lab: Notes/Report: 7.3% glycohemoglobin 7.3% 5 - 6.5 % P-Comprehensive Metabolic Pa jorge (CMP) Reviewed date:05/22/2024 09:29:09 AM Interpretation:BS 168 Performing Lab: Notes/Report: Test performed by [facility] [address] [place] [address] , [address], [place] [address] Piyush Handy MD, Endodontic Assistant CLIA: [id number] Sodium 141 135-145 mmol/L Potassium 5.0 3.5-5.3 [...] 0.5 <0.2-1.2 mg/dL A/G Ratio 1.4 1.1-2.5 P-Microalbumin/Creatinine, R andom Urine Sample Reviewed date:05/22/2024 09:29:46 AM Interpretation: Performing Lab: Notes/Report: Test performed by [facility] [address] [place] [address] , [address], [place] [address] Piyush Handy MD, Endodontic Assistant CLIA: [id number] Albumin/Creatinine Ratio, Urine 4 0-30 ug/m g Microalbumin, Urine, Random 0.6 Creatinine, Urine 143.7 Reason For Referral No Information Medications Medication SIG (Take, Route, Frequency, Duration) Notes Start Date End Date Status Xigduo XR 5-1000 MG 2 tab Orally Once a day; Duration: 90 day(s) 07/18/2023 Active Jobst 30-40mmHg Compression Sm DIRECTED 019 Active hydroCHLOROthiazide 12.5 MG 1 capsule in the morning Orally Once a day; Duration: 90 days 11/25/2023 Active CHROMIUM PUCOLINATE 500 MCG 1 TAB ORAL ONCE DAILY Active Potassium Chloride ER 10 MEQ 1 cap(s) or ally 2 times a day; Duration: 90 days Active Contour Test DIRECTED TEST 1 X PER DAY 01/18/2012 Active Lisinopril 2.5 MG 1 tablet Orally Once a day; Duration: 90 day(s) 11/25/2023 Active CONTOUR METER SYSTEM DIRECTED 01/18/2012 Active Lipitor 10 MG 1 tab(s) orally once a day (at bedtime); Duration: 90 days Active ZANTAC 150 150 MG 1 tab(s) ORALLY daily; Duration: 90 days Active Lisinopril-hydroCHLOROthiazi de 10-12.5 MG 1 tab(s) orally once a day; Duration: 90 days Active Rybelsus 14 MG 1 tablet at least 30 minutes before first food, beverage or other oral medicine of the day Orally Once a day; Duration: 90 days Active BD DANELLE 2ND GEN PEN NEEDLE 4 MM X 32G - DIRECTED Active GLUCOMETER TEST STRIPS DIRECTED TWO T IMES A DAY 10/05/2021 Active Lancets 1 TWO TIMES A DAY 10/05/2021 A ctive GLUCOMETER DIRECTED TWO TIME S A DAY 10/05/2021 Active B-12 1000 MCG 1 tab(s) orally once a day 02/23/2016 Active Immunizations Vaccine Route Administration Date Status Comme nts COVID 19 Pfizer Unknown 02/05/2021 Administered COVID 19 Pfizer Unknown 03/03/2021 Administered Fluzone Intradermal Quad private(18-64yrs) IM Intramuscular 05/21/2023 Administered Fluzone Quad (6months&older) IM Intramuscular 02/18/2020 Administered Fluzone Quad (6months&older) IM Intramuscular 09/27/2021 Administered Fluzone Quad (6months&older) IM Intramuscular 03/28/2022 Administered Fluzone Quad (6months&older) IM Intramuscular 05/18/2024 Administered Hepatitis A (adult) Unknown 04/03/2018 Administered Hepatitis A (adult) Unknown 10/01/2018 Administered PNEUMOVAX 23 VACCINE Unknown 04/03/2018 Administered Tetanus Tdap-Adacel (over 7yrs) IM Intramuscular 08/08/2018 Administered Problems Problem Type SNOMED Code ICD Code Onset Dates Problem Status W/U Status Risk Notes Problem Hyperlipidemia (10794111) Hyperlipidemia (272.4) Active confirmed Problem Hypertension (02604272) HTN (hypertension) (I10) Active confirmed Problem Mixed hyperlipidemia (879985419) Mixed hyperlipidemia (E78.2) Active confirmed Problem Type II diabetes mellitus without complication (117355195) Type 2 diabetes mellitus without complication (E11.9) Active confirmed Problem Gastroesophageal reflux disease without esophagitis (990972103) Gastroesophageal reflux disease without esophagitis (K21.9) Active confirmed Problem Essential hypertensi on (86078060) Essential hypertension, hypertension with unspecified goal (I10) Active confirmed Problem Varicose veins of bilateral lower limbs (71021637717350625) Varicose veins of both legs with edema (I83.893) Active confirmed Problem Skin sensation disturbance (60175602) Paresthesias in right hand (R20.2) Active confirmed Problem Pure hypercholesterolemia (912510100) Pure hypercholesterolem ia, unspecified (E78.00) Active confirmed Vital Signs Heart Rate 73 /min 11/09/2024 Blood pressure diastolic 70 mm Hg 11/09/2024 Height 64.50 in 11/09/2024 Blood pressure systolic 120 mm Hg 11/09/2024 Weight 223.8 lbs 11/09/2024 BMI 37.82 kg/m2 11/09/2024 Encounters Encounter Location Date Provider Diagnosis [facility] [address] [facility] [address] [place], [place] [id number] 05/18/2024 Zulma Hand Type 2 diabetes chrissy itus without complication E11.9 ; Mixed hyperlipidemia E78.2 ; Essential hypertension, hypertension with unspecified goal I10 ; Gastroesophageal reflux disease without esophagitis K21.9 and Encounter for immunization Z23 [facility] [address] [facility] [address] [place], [place] [id number] 11/09/2024 Zulma Hand Type 2 diabetes chrissy itus without complication E11.9 ; Essential hypertension, hypertension with unspecified goal I10 ; Mixed hyperlipidemia E78.2 ; Gastroesophageal reflux disease without esophagitis K21.9 and Hypokalemia E87.6 [facility] [address] [place], [place] [id number] 05/19/2024 Saul Larwill [facility] [address] [place], [place] [id number] 08/21/2024 Saul Larwill Hypokalemia E87.6 an d Essential hypertension, hypertension with unspecified goal I10 [facility] [address] [place], [place] [id number] 11/17/2024 Saul Larwill Screening for breast cancer Z12.39 Assessments Encounter [...] at home, continue meds, exercise, and diet 11/17/2024 Screening for breast cancer (ICD-10 - Z12.39) 08/21/2024 Hypokalemia (ICD-10 - E87.6) 05/18/2024 Mixed hyperlipidemia (ICD-10 - E78.2) 05/18/2024 Type 2 diabetes mellitus without complication (ICD-10 - E11.9) 05/18/2024 Essential hypertension, hypertension with unspecified goal (ICD-10 - I10) some low BP; denia decrease lisinopril and continue with HCTZ due to varicosities of the right leg 08/21/2024 Essential hypertension, hypertension with unspecified goal (ICD-10 - I10) 11/09/2024 Mixed hyperlipidemia (ICD-10 - E78.2) Continue lipitor, recheck lipid panel, if run out of meds again and unable to afford call the office to see if we have any samples. 11/09/2024 Gastroesophageal reflux disease without esophagitis (ICD-10 - K21.9) Continue this med OTC as it has been helping you. 05/18/2024 Gastroesophageal reflux disease without esophagitis (ICD-10 - K21.9) 05/18/2024 Encounter for immunization (ICD-10 - Z23) 11/09/2024 Hypokalemia (ICD-10 - E87.6) continue with potassium pills, will recheck labs today 05/18/2024 Other discussed need for Eye exam annually Plan Of Treatment Pending Test Test Name Order Date colonoscopy 03/28/2022 Mammogram 11/17/2024 Next Appt Details Provider Name:Saul Trejo ry, 05/11/2025 09:45:00 AM, [address], [address], [place], [place], [id number], Insurance Providers Payer Name Payer Address Payer Phone Subscriber Number Group Number Insured Name Patient Relationship to Insured Coverage Start Date Coverage End Date [employer] [address] [place] [address] [id number] Sienna Douglas Self - patient is the insured Medical (General) History Medical History History ICD Code diabetes mellitus hyperlipidemia hypertension GERD WPW Syndrome Surgical History Surgery Date(Month/Year) C SECTION Tooth Extraction Feb 2019 Colonoscopy October 2023 Hospitalization History Reason Date(Month/Year) [facility]-uncontrolled diabetes mellitus 2 to 01/07/12
== END 2024-12-07 23:59 | disposition home or self-care (01) ==
LOC: RAD 07:53
PROVIDERS: PCP Nurse Practitioner Family; Visit Provider Family Medicine
DX: Z12.31 Encounter for screening mammogram for malignant neoplasm of breast (principal); R92.323 Mammographic fibroglandular density, bilateral breasts
CPT/HCPCS: 77063; 77067